=== PATIENT | male | born 1970 | race Caucasian/White ===

== ENCOUNTER 2016-12-05 18:47 | Emergency (ER) | payer MEDICAID ==
[2016-12-05 18:47] VITALS: BMI 33.3
[2016-12-05 20:11] LABS: BASO % 0.5 % (0.0-2.0); EOS # 0.2 K/uL (0.0-0.7); EOS % 2.3 % (0.0-4.0); HEMATOCRIT 43.1 % (35.0-51.0); LYMPH # 1.9 K/uL (1.0-4.3); LYMPH % 24.7 % (20.0-40.0); MEAN CELL VOLUME 91.3 fL (80.0-94.0); MEAN CORPUSCULAR HEMOGLOBIN 31.5 pg (27.0-31.0); MEAN CORPUSCULAR HGB CONC 34.5 g/dL (33.0-37.0); MEAN PLATELET VOLUME 9.1 fL (7.2-11.7); MONO # 0.6 K/uL (0.0-0.8); MONO % 8.5 % (0.0-10.0); RED CELL DISTRIBUTION WIDTH 12.3 % (11.5-14.5); WHITE BLOOD COUNT 7.6 K/uL (4.8-10.8)
[2016-12-05 20:17] LABS: RBC URINE < 1 /hpf (0-3); URINE BILIRUBIN NEGATIVE (NEGATIVE); URINE BLOOD 1+ (NEGATIVE); URINE COLOR Yellow (YELLOW); URINE GLUCOSE (UA) NORMAL (Normal); URINE KETONE NEGATIVE (NEGATIVE); URINE LEUKOCYTE ESTERASE NEG Leu/uL (Negative); URINE PROTEIN NEGATIVE (NEGATIVE); URINE UROBILINOGEN NORMAL mg/dL (0.2-1.0); WBC URINE < 1 /hpf (0-5)
[2016-12-05 20:27] LABS: CHLORIDE 99 mmol/L (98-107); POTASSIUM 3.8 mmol/L (3.6-5.2); SODIUM 140 mmol/L (132-148)
[2016-12-05 20:29] LABS: ALB/GLOB RATIO 1.2 (1.0-2.1); ALKALINE PHOSPHATASE 89 U/L (38-126); AST/SGOT 25 U/L (17-59); BILIRUBIN,TOTAL 0.6 mg/dL (0.2-1.3); CARBON DIOXIDE 26 mmol/L (22-30); GFR AFRICAN-AMERICAN > 60; TOTAL PROTEIN 7.6 g/dL (6.3-8.3)
[2016-12-05 20:30] LABS: ALT/SGPT 42 U/L (21-72); BLOOD UREA NITROGEN 13 mg/dL (9-20); CALCIUM 8.8 mg/dl (8.6-10.4); GLUCOSE,RANDOM 85 mg/dL (75-110)
[2016-12-05] MEDS ORDERED: Amoxicillin-Clav 875-125 mg Tab PO STA (21:43)
[2016-12-05] MEDS ORDERED: Sodium Chloride 0.9% 1,000 ML IV ONE (21:43)
[2016-12-05] MEDS ORDERED: Amoxicillin-Clav 875-125 mg Tab PO ONE (21:48)
[2016-12-05] MEDS ORDERED: Sodium Chloride 0.9% 1,000 ML ONE (21:49)
--- NOTE | 2016-12-05 21:52 | C.PDOC ---
Time Seen by Provider: 12/05/16 19:44 Chief Complaint (Nursing): Dizziness/Lightheaded History Per: Patient, Family Onset/Duration Of Symptoms: Days (few) Current Symptoms Are (Timing): Still Present Associated Symptoms Preceding Syncopal Episode: Vertigo Worse With Change In Head Position, Other (Left ear tinnitus) Fall Associated With With Symptoms: No Severity: Moderate Additional History Per: Prior Records - Symptoms Of CVA Associated Symptoms: denies: Impaired Speech, Seizure Activity, New Vision Deficit(Left), New Vision Deficit(Right), New Confusion Recent Head Trauma: No Past Medical History Reviewed: Historical Data, Nursing Documentation, Vital Signs Vital Signs: Last Vital Signs Temp 98.6 F 12/05/16 18:51 Pulse 72 12/05/16 18:51 Resp 18 12/05/16 18:51 BP 140/83 12/05/16 18:52 Pulse Ox 98 12/05/16 21:57 - Medical History PMH: Back Problems, Hypercholesterolemia Surgical History: No Surg Hx - [facility] Procedures ESOPHAGOGASTRODUODENOSCOPY [EGD] W/CLOSED BIOPSY (02/04/15) EXCISION OF HYDROCELE (07/01/13) PERCUT TUNICA ASPIRATION (06/05/13) TESTICULAR LES DESTRUCT (07/01/13) Family History: States: Unknown Family Hx - Social History Hx Tobacco Use: No Hx Alcohol Use: Yes Hx Substance Use: No - Immunization History Hx Influenza Vaccination: No Hx Pneumococcal Vaccination: No Review Of Systems Except As Marked, All Systems Reviewed And Found Negative. Constitutional: Negative for: Fever ENT: Positive for: Other (Left ear tinnitus). Negative for: Ear Pain, Ear Discharge, Throat Pain Cardiovascular: Negative for: Chest Pain Respiratory: Negative for: Cough, Shortness of Breath Gastrointestinal: Positive for: Nausea. Negative for: Vomiting Genitourinary: Negative for: Dysuria Musculoskeletal: Negative for: Neck Pain, Back Pain Skin: Negative for: Rash Neurological: Positive for: Headache, Dizziness. Negative for: Weakness, Numbness, Change in Speech, Confusion, Seizures, Altered Mental Status Physical Exam - Physical Exam Appears: Non-toxic, No Acute Distress Skin: Normal Color, Warm, Dry, No Rash Head: Atraumatic, Normacephalic Eye(s): bilateral: Normal Inspection, PERRL, EOMI Ear(s): Left: TM Dull, Loss Of TM Landmarks, Right: Normal Neck: Normal ROM, Supple Cardiovascular: Rhythm Regular Respiratory: Normal Breath Sounds, No Accessory Muscle Use Gastrointestinal/Abdominal: Soft, No Tenderness Back: No CVA Tenderness Extremity: Normal ROM, No Pedal Edema, No Calf Tenderness Neurological/Psych: Oriented x3, Normal Speech, Normal Cognition, Normal Cranial Nerves, No Cerebellar Signs, Normal Motor, Normal Sensation ED Course And Treatment - Laboratory Results Result Diagrams: 12/05/16 20:05 12/05/16 20:05 Lab Interpretation: No Acute Changes O2 Sat by Pulse Oximetry: 98 Pulse Ox Interpretation: Normal - CT Scan/US CT head Other Rad Studies (CT/US): Read By Radiologist, Radiology Report Reviewed CT/US Interpretation: Mucosal thickening in the ethmoid air cells bilaterally. Reassessment Condition: Improved Disposition Counseled Patient/Family Regarding: Studies Performed, Diagnosis, Need For Followup, Rx Given - Disposition Referrals: Sunday Aviles MD [Staff Provider] - [facility] [Outside] Disposition: HOME/ ROUTINE Disposition Time: 22:00 Condition: IMPROVED Additional Instructions: Follow up with an ENT specialist within 1 week for further evaluation and treatment. Return to the ER if you develop fever, vomiting, weakness, numbness, trouble walking, talking or seeing, worsening of symptoms or if you have any other concerns. Prescriptions: Amoxicillin/Clavulanate [Augmentin 875 MG-125 MG] 1 tab PO BID #14 tab Fluticasone Propionate [Flonase] 2 spr NS DAILY #1 bottle Meclizine [Meclizine*] 25 mg PO Q6 PRN #30 tab PRN Reason: Dizziness Instructions: Sinusitis (ED), Vertigo (ED) Print Language: UPPER SORBIAN - Clinical Impression Clinical Impression: Dizziness, Ethmoidal sinusitis
[2016-12-05 22:02] VITALS: BP 130/83; PULSE 69; RESP 16; TEMP 98
[2016-12-05 22:04] VITALS: O2SAT 98
--- NOTE | 2016-12-06 08:18 | CT ---
PROCEDURE: CT HEAD WITHOUT CONTRAST. HISTORY: Dizziness, headache, Left side hearing loss. COMPARISON: None available. TECHNIQUE: Axial computed tomography images were obtained through the head/brain without intravenous contrast. Radiation dose: Total exam DLP = 899 mGy-cm. This CT exam was performed using one or more of the following dose reduction techniques: Automated exposure control, adjustment of the mA and/or kV according to patient size, and/or use of iterative reconstruction technique. FINDINGS: HEMORRHAGE: No intracranial hemorrhage. BRAIN: No mass effect or edema. No atrophy or chronic microvascular ischemic changes. VENTRICLES: Unremarkable. No hydrocephalus. CALVARIUM: Unremarkable. PARANASAL SINUSES: Mucosal thickening noted in the ethmoid air cells bilaterally. MASTOID AIR CELLS: Unremarkable as visualized. No inflammatory changes. OTHER FINDINGS: None. IMPRESSION: No acute intracranial abnormality. Mucosal thickening in the ethmoid air cells bilaterally. These findings were preliminarily reported at 9:27 p.m. on 12/05/[address] Charline Daniels from [facility].
== END 2016-12-05 22:14 | disposition home or self-care (01) ==
LOC: C.ER 18:47
DX: R42 Dizziness and giddiness (principal); J32.2 Chronic ethmoidal sinusitis
CPT/HCPCS: 70450; 80053; 81001; 85025; 96374; 99285; J1885; J7040

== ENCOUNTER 2017-08-26 13:42 | Emergency (ER) | payer MEDICAID ==
[2017-08-26 13:43] VITALS: BMI 33.3
[2017-08-26 13:49] VITALS: TEMP 98.3
[2017-08-26 15:18] VITALS: BP 110/78; PULSE 72; RESP 18; O2SAT 98
--- NOTE | 2017-08-26 16:32 | C.PDOC ---
History Of Present Illness 47 year old male presents to the emergency department with complaints of right knee and hip pain since yesterday. Patient reports his pain is status-post a fall he took at his house after tripping. Patient denies head trauma, loss of consciousness, or any symptoms prior to the fall. Patient is able to fully communicate. Chief Complaint (Nursing): Lower Extremity Problem/Injury History Per: Patient History/Exam Limitations: no limitations Onset/Duration Of Symptoms: Days (1) Current Symptoms Are (Timing): Still Present - Hip Description Of Injury: Fell (right hip), Tripped. denies: Fainted - Knee Description Of Injury: Fell (right knee), Other (tripped) Past Medical History Reviewed: Historical Data, Nursing Documentation, Vital Signs Vital Signs: Last Vital Signs Temp 98.3 F 08/26/17 13:47 Pulse 72 08/26/17 15:17 Resp 18 08/26/17 15:17 BP 110/78 08/26/17 15:17 Pulse Ox 98 08/26/17 18:51 - Medical History PMH: Back Problems, Hypercholesterolemia Denies: Chronic Kidney Disease Surgical History: No Surg Hx - [facility] Procedures ESOPHAGOGASTRODUODENOSCOPY [EGD] W/CLOSED BIOPSY (02/04/15) EXCISION OF HYDROCELE (07/01/13) PERCUT TUNICA ASPIRATION (06/05/13) TESTICULAR LES DESTRUCT (07/01/13) Family History: States: No Known Family Hx - Social History Hx Tobacco Use: No Hx Alcohol Use: Yes Hx Substance Use: No - Immunization History Hx Tetanus Toxoid Vaccination: Yes Hx Influenza Vaccination: No Hx Pneumococcal Vaccination: No Review Of Systems Except As Marked, All Systems Reviewed And Found Negative. Cardiovascular: Negative for: Other (loss of consciousness) Musculoskeletal: Positive for: Leg Pain (right knee and hip) Physical Exam - Physical Exam Head: Atraumatic Cardiovascular: Rhythm Regular Respiratory: Normal Breath Sounds Gastrointestinal/Abdominal: Normal Exam, Soft, No Tenderness Extremity: Normal ROM, Tenderness (point tenderness noted at lateral right hip and lateral right knee) Neurological/Psych: Oriented x3, Normal Speech, Normal Cognition ED Course And Treatment O2 Sat by Pulse Oximetry: 98 (RA) - Other Rad Knee X-Ray X-Ray: Viewed By Me, Read By Radiologist Interpretation: No evidence of acute fracture or dislocation. Hip X-Ray X-Ray: Viewed By Me, Read By Radiologist Interpretation: No evidence of acute fracture or dislocation. Medical Decision Making Medical Decision Making: Plan: XR Right Knee Three-Views XR Right Hip Min 2V W/Pelvis Disposition - Disposition Referrals: Mushtaq Mckeon, [Non-Staff] - Disposition: HOME/ ROUTINE Disposition Time: 14:30 Condition: GOOD Additional Instructions: Thank you for letting us take care of you today. The emergency medical care you received today was directed at your acute symptoms. If you were prescribed any medication, please fill it and take as directed. It may take several days for your symptoms to resolve. Return to the Emergency Department if your symptoms worsen, do not improve, or if you have any other problems. Please contact your doctor or call one of the physicians/clinics you have been referred to that are listed on the Patient Visit Information form that is included in your discharge packet. Bring any paperwork you were given at discharge with you along with any medications you are taking to your follow up visit. Our treatment cannot replace ongoing medical care by a primary care provider (PCP) outside of the emergency department. Thank you for allowing the [facility] team to be part of your care today. Follow up with your primary care doctor in 2-3 days for re-evaluation and further management. Prescriptions: Ibuprofen [Motrin] 600 mg PO Q6 PRN #20 tab PRN Reason: Pain, Moderate (4-7) Instructions: Knee Sprain (DC) - Clinical Impression Clinical Impression: Knee sprain - Scribe Statement The provider has reviewed the documentation as recorded by the Scribe (Porfirio Paddy) Provider Attestation: All medical record entries made by the Scribe were at my direction and personally dictated by me. I have reviewed the chart and agree that the record accurately reflects my personal performance of the history, physical exam, medical decision making, and the department course for this patient. I have also personally directed, reviewed, and agree with the discharge instructions and disposition.
--- NOTE | 2017-08-26 18:10 | RAD ---
PROCEDURE: Right Hip Radiographs. HISTORY: s/p fall - r/o fx COMPARISON: None. FINDINGS: BONES: Normal. No fracture. JOINTS: Normal. SOFT TISSUES: Normal. OTHER FINDINGS: None. IMPRESSION: O evidence of acute fracture or dislocation.
--- NOTE | 2017-08-26 18:12 | RAD ---
PROCEDURE: Right Knee Radiographs. HISTORY: s/p fall - r/o fx COMPARISON: None. FINDINGS: BONES: Normal. No fracture. JOINTS: Normal. No osteoarthritis. JOINT EFFUSION: Possible small suprasellar joint effusion. OTHER FINDINGS: None. IMPRESSION: No evidence of acute fracture or dislocation.
== END 2017-08-26 15:18 | disposition home or self-care (01) ==
LOC: C.ER 13:42
DX: S83.91XA Sprain of unspecified site of right knee, initial encounter (principal); W01.0XXA Fall on same level from slipping, tripping and stumbling without subsequent striking against object, initial encounter; Y92.009 Unspecified place in unspecified non-institutional (private) residence as the place of occurrence of the external cause